=== PATIENT | male | born 2000 | race Two or more races ===

== ENCOUNTER 2021-09-21 22:46 | Emergency (ER) | payer SELFPAY ==
[~2021-09-21] VITALS: Ht 167.6 cm; Wt 88.7 kg
[2021-09-22 00:07] LABS: BASO # 0.1 x10^3/uL (0.0-0.2); BASO % 1 % (0-3); EOS # 0.4 x10^3/uL (0.0-0.7); EOS % 6 % (0-3); HEMATOCRIT 40.4 % (39.0-53.0); LYMPH # 3.1 x10^3/uL (1.0-4.8); LYMPH % 46 % (24-48); MEAN CORPUSCULAR HEMOGLOBIN 28 pg (25-35); MEAN CORPUSCULAR HGB CONC 35 g/dL (31-37); MEAN CORPUSCULAR VOLUME 81 fL (79-100); MONO # 0.7 x10^3/uL (0.0-1.1); MONO % 10 % (0-9); NEUT # 2.5 x10^3/uL (1.8-7.7); NEUT % 37 % (31-73); PLATELET COUNT 191 x10^3/uL (140-400); RED BLOOD COUNT 5.01 x10^6/uL (4.30-5.70); WHITE BLOOD COUNT 6.8 x10^3/uL (4.0-11.0)
[2021-09-22 00:23] LABS: BACTERIA,URINE 0 /HPF (0-FEW); RBC,URINE 0 /HPF (0-2); WBC,URINE OCC /HPF (0-4)
[2021-09-22 00:23] LABS: CALCIUM 8.2 mg/dL (8.5-10.1); CREATININE 0.8 mg/dL (0.7-1.3); GFR 123.2; POTASSIUM 3.6 mmol/L (3.5-5.1)
[2021-09-22 00:24] LABS: HYALINE CASTS, URINE MODERATE /HPF
--- NOTE | 2021-09-22 00:24 | RAD ---
INDICATION: Reason: Epigastric pain / Spl. Instructions: / History: COMPARISON: None. FINDINGS: 2 view of chest obtained. Hypoexpanded examination. Cardiac silhouette is near the upper limits of normal in size. Mild hazines s left lung base. IMPRESSION: * Hypoexpanded exam with mild haziness at the left lung base which could be secondary to atelectasis or early infiltrate. Electronically signed by: Nico Winslow MD (09/22/2021 12:22 AM) [id number]
[2021-09-22 00:25] LABS: ALBUMIN 3.2 g/dL (3.4-5.0); PHOSPHORUS 4.2 mg/dL (2.6-4.7); TOTAL BILIRUBIN 1.2 mg/dL (0.2-1.0); TOTAL PROTEIN 6.3 g/dL (6.4-8.2)
[2021-09-22] MEDS ORDERED: ONDANSETRON PF 4 MG/2 ML VIAL. IVP ONE (00:30)
[2021-09-22] MEDS ORDERED: IV NORMAL SALINE 1000ML BAG 1,000 ML IV ONE (00:30)
[2021-09-22] MEDS ORDERED: MORPHINE SULFATE 4 MG/ML INJ. IVP ONE (00:30)
[2021-09-22] MEDS ORDERED: LIDO:MAALOX 1:1 20 ML SINGLE DOSE. SWSW ONE (01:00)
[2021-09-22] MEDS ORDERED: FAMO-63 PO (01:03)
--- NOTE | 2021-09-22 01:03 | PHYS DOC ---
Past Medical History Past Surgical History: No Surgical History Smoking Status: Never Smoker Alcohol Use: Rarely General Adult EDM: Chief Complaint: ABDOMINAL PAIN HPI: HPI: Patient is a 21-year-old male who presents to the emergency department complaining of epigastric stomach discomfort for the past 5 days, complains of headache for the past hour or 2. Reports his stomach discomfort is a 7 out of 10 along with his head discomfort. Patient denies this being the worst headache of his life. Patient states he has not taken any pain medicines as he just moved here from [place] 5 days ago. Patient reports he does not smoke cigarettes, does not use illicit drugs or marijuana, does drink daily. Patient reports he drinks beer after work. 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 Patient denies a surgical history, states he takes no medications at home. Patient denies chest pain or chest discomfort, denies chest or nasal congestion, denies nausea, vomiting, diarrhea or constipation. Patient denies diaphoretic episodes, denies dizziness, denies syncopal or near syncopal episodes. Patient denies allergies to medications. Patient denies other physical complaints or physical concerns Review of Systems: Review of Systems: 14 body systems of review of systems have been reviewed. See HPI for pertinent positives and negative responses, otherwise all other systems are negative, nonpertinent or noncontributory. Constitutional: Negative except as outlined in HPI above. Skin: Negative except as outlined in HPI above. Eyes: Negative except as outlined in HPI above. HENT: Negative except as outlined in HPI above. Respiratory: Negative except as outlined in HPI above. Cardiovascular: Negative except as outlined in HPI above. GI: Negative except as outlined in HPI above. : Negative except as outlined in HPI above. Musculoskeletal: Negative except as outlined in HPI above. Integument: Negative except as outlined in HPI above. Neurologic: Negative except as outlined in HPI above. Endocrine: Negative except as outlined in HPI above. Lymphatic: Negative except as outlined in HPI above. Psychiatric: Negative except as outlined in HPI above. Heart Score: C/O Chest Pain: No Risk Factors: Risk Factors: DM, Current or recent (<one month) smoker, HTN, HLP, family history of CAD, obesity. Risk Scores: Score 0 - 3: 2.5% MACE over next 6 weeks - Discharge Home Score 4 - 6: 20.3% MACE over next 6 weeks - Admit for Clinical Observation Score 7 - 10: 72.7% MACE over next 6 weeks - Early Invasive Strategies Current Medications: Current Medications Medications (Trade) Dose Ordered Sig/[facility] Start Time Stop Time Status Last Admin Dose Admin Morphine Sulfate (Morphine Sulfate) 4 mg 1X ONCE 09/22/21 00:30 09/22/21 00:31 DC 09/22/21 00:15 4 MG Multi-Ingredient Mouthwash/Gargle (Gi Cocktail) 20 ml 1X ONCE 09/22/21 01:00 09/22/21 01:01 Ondansetron HCl (Zofran) 4 mg 1X ONCE 09/22/21 00:30 09/22/21 00:31 DC 09/22/21 00:15 4 MG Sodium Chloride 1,000 ml @ 1,000 mls/hr 1X ONCE 09/22/21 00:30 09/22/21 01:29 09/22/21 00:14 1,000 MLS/HR Allergies: Allergies: Allergies Coded Allergies Type Severity Reaction Last Updated Verified No Known Drug Allergies 09/21/21 No Physical Exam: PE: Constitutional: Well developed, well nourished, no acute distress, non-toxic appearance. 21-year-old male in no apparent distress. HENT: Normocephalic, atraumatic. Oropharynx is moist, pink, no deep tissue infectious process appreciated, there is no lymphadenopathy of the head or neck appreciated, bilateral TMs intact and within normal limits. Eyes: Conjunctiva normal, no discharge. No scleral icterus. Neck: Normal range of motion, no stridor. No meningismus signs, no nuchal rigidity. Cardiovascular: No cyanosis appreciated, distal cap refill less than 2 seconds. Regular rate and rhythm, heart sounds S1-S2 to auscultation. Lungs & Thorax: Patient is in no respiratory distress, no audible adventitious lung sounds appreciated. Lung sounds clear to auscultation all lung elise, normal work of breathing. No pain to palpation of anterior thorax. Abdomen: Nontender, no abnormalities noted. Abdomen is flat, nontender to palpation, no surgical scars present, no abnormal skin discoloration present. Skin: Warm, dry, no erythema, no rash. Back: No tenderness, no deformities. No left-sided or right-sided CVA TTP. Extremities: No tenderness, no cyanosis, no clubbing, ROM intact, no edema. Neurologic: Alert and oriented X 3, normal motor function, normal sensory function, no focal deficits noted. Psychologic: Affect normal, judgement normal, mood normal. Current Patient Data: Labs: Laboratory Tests Test 09/21/21 23:30 09/21/21 23:39 Urine Collection Type Unknown Urine Color (Auto) Yellow Urine Turbidity Clear Urine pH (Auto) 5.5 Urine Specific [place] 1.040 Urine Protein (Auto) 30 mg/dL Urine Glucose (Auto)(UA) Negative mg/dL Urine Ketones (Auto) >150 mg/dL Urine Blood (Auto) Negative Urine Nitrite Negative Urine Bilirubin (Auto) Small Urine Urobilinogen (Auto) >12 mg/dL Urine Leukocyte Esterase (Auto) Negative Urine RBC 0 /HPF Urine WBC Occ /HPF Urine Squamous Epithelial Cells Occ /LPF Urine Bacteria 0 /HPF Urine Hyaline Casts Moderate /HPF Urine Mucus Marked /LPF White Blood Count 6.8 x10^3/uL Red Blood Count 5.01 x10^6/uL Hemoglobin 14.0 g/dL Hematocrit 40.4 % Mean Corpuscular Volume 81 fL Mean Corpuscular Hemoglobin 28 pg Mean Corpuscular Hemoglobin Concent 35 g/dL Red Cell Distribution Width 14.0 % Platelet Count 191 x10^3/uL Neutrophils (%) (Auto) 37 % Lymphocytes (%) (Auto) 46 % Monocytes (%) (Auto) 10 % Eosinophils (%) (Auto) 6 % Basophils (%) (Auto) 1 % Neutrophils # (Auto) 2.5 x10^3/uL Lymphocytes # (Auto) 3.1 x10^3/uL Monocytes # (Auto) 0.7 x10^3/uL Eosinophils # (Auto) 0.4 x10^3/uL Basophils # (Auto) 0.1 x10^3/uL Sodium Level 140 mmol/L Potassium Level 3.6 mmol/L Chloride Level 103 mmol/L Carbon Dioxide Level 25 mmol/L Anion Gap 12 Blood Urea Nitrogen 16 mg/dL Creatinine 0.8 mg/dL Estimated GFR (Cockcroft-Gault) 123.2 BUN/Creatinine Ratio 20 Glucose Level 77 mg/dL Calcium Level 8.2 mg/dL Phosphorus Level 4.2 mg/dL Magnesium Level 2.0 mg/dL Total Bilirubin 1.2 mg/dL Aspartate Amino Transf (AST/SGOT) 62 U/L Alanine Aminotransferase (ALT/SGPT) 69 U/L Alkaline Phosphatase 97 U/L Troponin I High Sensitivity 9 ng/L Total Protein 6.3 g/dL Albumin 3.2 g/dL Albumin/Globulin Ratio 1.0 Lipase 111 U/L Current Medications Medications (Trade) Dose Ordered Sig/Fady Route PRN Reason Start Time Stop Time Status Last Admin Dose Admin Sodium Chloride 1,000 ml @ 1,000 mls/hr 1X ONCE IV 09/22/21 00:30 09/22/21 01:29 09/22/21 00:14 1,000 MLS/HR Ondansetron HCl (Zofran) 4 mg 1X ONCE IVP 09/22/21 00:30 09/22/21 00:31 DC 09/22/21 00:15 4 MG Morphine Sulfate (Morphine Sulfate) 4 mg 1X ONCE IVP 09/22/21 00:30 09/22/21 00:31 DC 09/22/21 00:15 4 MG Multi-Ingredient Mouthwash/Gargle (Gi Cocktail) 20 ml 1X ONCE SWSW 09/22/21 01:00 09/22/21 01:01 Laboratory Tests Test 09/21/21 23:30 09/21/21 23:39 Urine Collection Type Unknown Urine Color (Auto) Yellow Urine Turbidity Clear Urine pH (Auto) 5.5 (<5.0-8.0) Urine Specific [place] 1.040 (1.000-1.030) Urine Protein (Auto) 30 mg/dL (Negative) Urine Glucose (Auto)(UA) Negative mg/dL (Negative) Urine Ketones (Auto) >150 mg/dL (Negative) Urine Blood (Auto) Negative (Negative) Urine Nitrite Negative (Negative) Urine Bilirubin (Auto) Small (Negative) Urine Urobilinogen (Auto) >12 mg/dL (Normal) Urine Leukocyte Esterase (Auto) Negative (Negative) Urine RBC 0 /HPF (0-2) Urine WBC Occ /HPF (0-4) Urine Squamous Epithelial Cells Occ /LPF Urine Bacteria 0 /HPF (0-FEW) Urine Hyaline Casts Moderate /HPF Urine Mucus Marked /LPF White Blood Count 6.8 x10^3/uL (4.0-11.0) Red Blood Count 5.01 x10^6/uL (4.30-5.70) Hemoglobin 14.0 g/dL (13.0-17.5) Hematocrit 40.4 % (39.0-53.0) Mean Corpuscular Volume 81 fL (79-100) Mean Corpuscular Hemoglobin 28 pg (25-35) Mean Corpuscular Hemoglobin Concent 35 g/dL (31-37) Red Cell Distribution Width 14.0 % (11.5-14.5) Platelet Count 191 x10^3/uL (140-400) Neutrophils (%) (Auto) 37 % (31-73) Lymphocytes (%) (Auto) 46 % (24-48) Monocytes (%) (Auto) 10 % (0-9) H Eosinophils (%) (Auto) 6 % (0-3) H Basophils (%) (Auto) 1 % (0-3) Neutrophils # (Auto) 2.5 x10^3/uL (1.8-7.7) Lymphocytes # (Auto) 3.1 x10^3/uL (1.0-4.8) Monocytes # (Auto) 0.7 x10^3/uL (0.0-1.1) Eosinophils # (Auto) 0.4 x10^3/uL (0.0-0.7) Basophils # (Auto) 0.1 x10^3/uL (0.0-0.2) Sodium Level 140 mmol/L (136-145) Potassium Level 3.6 mmol/L (3.5-5.1) Chloride Level 103 mmol/L (98-107) Carbon Dioxide Level 25 mmol/L (21-32) Anion Gap 12 (6-14) Blood Urea Nitrogen 16 mg/dL (8-26) Creatinine 0.8 mg/dL (0.7-1.3) Estimated GFR (Cockcroft-Gault) 123.2 BUN/Creatinine Ratio 20 (6-20) Glucose Level 77 mg/dL (70-99) Calcium Level 8.2 mg/dL (8.5-10.1) L Phosphorus Level 4.2 mg/dL (2.6-4.7) Magnesium Level 2.0 mg/dL (1.8-2.4) Total Bilirubin 1.2 mg/dL (0.2-1.0) H Aspartate Amino Transferase (AST) 62 U/L (15-37) H Alanine Aminotransferase (ALT) 69 U/L (16-63) H Alkaline Phosphatase 97 U/L (46-116) Troponin I High Sensitivity 9 ng/L (4-75) Total Protein 6.3 g/dL (6.4-8.2) L Albumin 3.2 g/dL (3.4-5.0) L Albumin/Globulin Ratio 1.0 (1.0-1.7) Lipase 111 U/L (73-393) Laboratory Tests 09/21/21 23:39 Laboratory Tests 09/21/21 23:39 Vital Signs: Vital Signs Date Time Temp Pulse Resp B/P (MAP) Pulse Ox O2 Delivery O2 Flow Rate FiO2 09/22/21 00:15 20 97 Room Air 09/21/21 22:55 97.5 87 126/79 (95) 97.5 EKG: EKG: EKG performed at 2359 by ED nursing staff shows a normal sinus rhythm without other ectopy heart rate 76 bpm, [place] interval point 172, QTc interval 0.423, no acute STEMI, no ACS, no acute ischemia appreciated, EKG interpreted by ED attending physician Dr. Keane. Radiology/Procedures: Radiology/Procedures: PROCEDURE: CHEST PA & LATERAL INDICATION: Reason: Epigastric pain / Spl. Instructions: / History: COMPARISON: None. FINDINGS: 2 view of chest obtained. Hypoexpanded examination. Cardiac silhouette is near the upper limits of normal in size. Mild haziness left lung base. IMPRESSION: * Hypoexpanded exam with mild haziness at the left lung base which could be se condary to atelectasis or early infiltrate. Electronically signed by: Nico Winslow MD (09/22/2021 12:22 AM) [id number] Course & Med Decision Making: Course & Med Decision Making Pertinent Labs and Imaging studies reviewed. (See chart for details) 21-year-old male, vital signs reviewed, presents to the emergency department concerning epigastric pain. Physical examination is unremarkable. Patient is an alcoholic. Patient's CBC is unremarkable, patient's CMP is unremarkable, patient's high-sensitivity troponin I is negative, patient's lipase is within n ormal limits. Patient was given a GI cocktail for suspected dyspepsia, patient reports pain resolution. The patient's liver enzymes are elevated, suspicious of alcoholism related process. The patient's chest x-ray did show signs of atelectasis of the left lung base, the patient's lung sounds are clear to auscultation, his O2 saturations are 99 to 100%, denies shortness of breath cough or congestion. Will defer further treatment of pulmonary system at this time. Upon reevaluation of the patient, patient reports his headache pain is resolved, patient has no further epigastric pain. Discussed with patient elevated liver enzymes, discussed needing to stop drinking alcohol, follow-up with primary care soon, will give area healthcare provider information. Discussed with patient will start on Pepcid 20 mg daily. Reviewed strict return to ER precautions and concerns, patient gave verbal understanding of and is amenable to ED discharge planning. Discussed with the patient all findings and diagnostic testing as well as the need to follow-up with their primary care provider for further evaluation and treatment or return to the ED if any new or worsening symptoms. Strict return precautions were also discussed at length, the patient voiced understanding and agreement with the discharge planning. The patient was nontoxic in appearance, in no apparent distress, and hemodynamically stable at the time of disposition. Abdi Disclaimer: Abdi Disclaimer: This electronic medical record was generated, in whole or in part, using a voice recognition dictation system. Departure Departure Impression: Primary Impression: Epigastric pain Additional Impressions: Alcoholism Elevated liver enzymes Disposition: HOME / SELF CARE / HOMELESS Condition: GOOD Patient Instructions: Alcohol Problems Additional Instructions: You were seen today in the emergency department for epigastric pain. An extensive work-up was performed today. As we discussed your liver enzymes are elevated. As we discussed this is most likely related to your alcohol consumption. Please reduce your alcohol consumption. To treat your epigastric pain, I have prescribed for you a medication called Pepcid that you will take once daily. I have also attached a list of area healthcare providers for you to establish primary health care for ongoing healthcare needs. Thank you for visiting our Emergency Department. It was a pleasure taking care of you today in the emergency department and we appreciate you trusting us with your care. If any additional problems come up don't hesitate to return to visit us. Please follow up with your primary care provider so they can plan additional care if needed and know about the problem that you had. If symptoms worsen come back to the Emergency Department. Any concerning symptoms that start such as chest pain, shortness of air, weakness or numbness on one side of the body, running high fevers or any other concerning symptoms return to the ER. [facility] [address] [place] [address] [facility] [address] [place] [address] [facility] [address] [facility] [place] [address] [facility] [address] [place] [address] [facility] [address] [place] [address] [facility] [address] [place] [address] [facility] [address] [place] [address] [facility] [address] [place] [address] [facility] [address] [place] [address] [facility] [address] [place] [address] [facility] Famotidine (PEPCID) 20 Mg Tablet 20 MG PO HS for Stomach discomfort, #30 TAB 2 Refills Prov: ABIODUN PADILLA APRN 09/22/21 ABIODUN PADILLA APRN September 22, 2021 01:03
[2021-09-22 01:37] VITALS: BP 152/78
--- NOTE | 2021-09-23 03:44 | EKG ---
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
== END 2021-09-22 01:50 | disposition home or self-care (01) ==
LOC: ER 22:46
DX: R10.13 Epigastric pain (principal); F10.20 Alcohol dependence, uncomplicated; Y90.9 Presence of alcohol in blood, level not specified; R74.8 Abnormal levels of other serum enzymes; R51.9 Headache, unspecified
CPT/HCPCS: 36415; 71046; 80053; 81001; 83690; 83735; 84100; 84484; 85025; 93005; 96361; 96374; 96375; 99285; J2270; J2405; J7030